=== PATIENT | female | born 1975 | race Caucasian/White ===

== ENCOUNTER 2019-03-06 19:42 | Emergency (ER) | payer BC ==
--- NOTE | 2019-03-06 20:37 | EDM.PDOC ---
ED HPI GENERAL MEDICAL PROBLEM - General Chief Complaint: ENT Problem Stated Complaint: BONE STUCK IN THROAT Time Seen by Provider: 03/06/19 19:47 Source of Information: Reports: Patient History Limitations: Reports: No Limitations - History of Present Illness INITIAL COMMENTS - FREE TEXT/NARRATIVE: Pt. presents to ER with complaints of "a porkshop bone stuck in my throat". Pt. states that this happened just prior to coming to ER. Denies any trouble breathing. No stridor. She states that she is able to swallow water without difficulty. Pt. states that the discomfort is located primarily on the L side of her neck/ chest. Onset: Today Onset Date: 03/06/19 Quality: Reports: Sharp Throat Pain Score (Numeric/FACES): 8 - Related Data Allergies Allergy/AdvReac Type Severity Reaction Status Date / Time acetaminophen Allergy Difficulty Verified 03/06/19 19:47 [From Lorcet (hydrocodone)] Breathing amoxicillin Allergy Difficulty Verified 03/06/19 19:47 Breathing hydrocodone Allergy Difficulty Verified 03/06/19 19:47 [From Lorcet (hydrocodone)] Breathing morphine Allergy Difficulty Verified 03/06/19 19:47 Breathing Penicillins Allergy Difficulty Verified 03/06/19 19:47 Breathing propoxyphene Allergy Difficulty Verified 03/06/19 19:47 [From Darvocet-N] Breathing Past Medical History Cardiovascular History: Reports: Hypertension Respiratory History: Reports: Asthma [employer] History: Reports: Polycystic Ovaries Musculoskeletal History: Reports: Osteoarthritis Psychiatric History: Reports: Anxiety, Panic Attack Oncologic (Cancer) History: Reports: Other (See Below) Other Oncologic History: LCIS, high risk for breast cancer Social & Family History - Tobacco Use Smoking Status *Q: Former Smoker Used Tobacco, but Quit: Yes Month/Year Tobacco Last Used: 2009 ED ROS GENERAL - Review of Systems Review Of Systems: See Below Constitutional: Reports: No Symptoms HEENT: Reports: Other Respiratory: Reports: No Symptoms Cardiovascular: Reports: No Symptoms Endocrine: Reports: No Symptoms GI/Abdominal: Reports: No Symptoms : Reports: No Symptoms Musculoskeletal: Reports: No Symptoms Skin: Reports: No Symptoms Neurological: Reports: No Symptoms Psychiatric: Reports: No Symptoms Hematologic/Lymphatic: Reports: No Symptoms Immunologic: Reports: No Symptoms ED EXAM, GENERAL - Physical Exam Exam: See Below Exam Limited By: No Limitations General Appearance: Alert, WD/WN, No Apparent Distress Course - Vital Signs Last Recorded V/S: Last Vital Signs Temp 36.6 C 03/06/19 19:47 Pulse 92 03/06/19 19:47 Resp 16 03/06/19 19:47 BP 128/77 03/06/19 19:47 Pulse Ox 100 03/06/19 19:47 - Radiology Interpretation Free Text/Narrative:: radiographs of the patient's neck negative. Pt. left AMA before the results were available. Departure - Departure Time of Disposition: 21:08 Disposition: Against Medical Advice 07 Clinical Impression: Globus sensation - Discharge Information Referrals: PCP,None [Primary Care Provider] - Forms: ED Department Discharge Sepsis Event Note - Evaluation Sepsis Screening Result: No Definite Risk - Focused Exam Vital Signs: Vital Signs Temp Pulse Resp BP Pulse Ox 03/06/19 19:47 36.6 C 92 16 128/77 100 Date Exam was Performed: 03/07/19 Time Exam was Performed: 00:59 - Assessment/Plan Plan: Pt. wanted did not want to wait for x-ray results and subsequently signed out AMA. She seemed quite upset during her entire stay in ER. She stated that she was going to drive herself to the ER in [place]. She did not want to wait for follow-up to be arranged and signed out AMA. Was advised to return to ER if she changed her mind. At time of discharge, she was able to swallow and hold down fluids and was not experiencing any breathing difficulty.
--- NOTE | 2019-03-06 21:15 | CR ---
[id number] RAD/RAD Neck Soft Tissue Exam: RAD Neck Soft Tissue Indication:PORK BONE IN THROAT Comparison: No prior imaging for comparison. Discussion: No radiopaque foreign bodies project over the oropharynx or hypopharynx. Epiglottis is normal. Prevertebral soft tissues are normal. Impression: Normal examination. Evin Mayfield MD 03/06/19 [id number] Thank you for allowing us to participate in the care of your patient.
== END 2019-03-06 21:08 | disposition left against medical advice (07) ==
LOC: VM.ED 19:42
DX: F45.8 Other somatoform disorders (principal); I10 Essential (primary) hypertension; Z88.6 Allergy status to analgesic agent; Z88.0 Allergy status to penicillin; Z88.5 Allergy status to narcotic agent; Z87.891 Personal history of nicotine dependence
CPT/HCPCS: 70360; 99283-25